=== PATIENT | female | born 1940 | race Caucasian/White ===

== ENCOUNTER → 2024-06-26 | Outpatient (CLI) | payer MEDICARE, MEDICAID, SELFPAY ==
[2024-06-26 17:47] LABS: Basophils % (Auto) 1 % (0-2.5); Eosinophils # (Auto) 0.1 Thou/mm3 (0.0-0.5); Eosinophils % (Auto) 2 % (0-10); Hematocrit 35.4 % (36.0-46.0); Hemoglobin 12.2 g/dL (12.0-16.0); Immature Granulocytes % (Auto) 0 % (0-0); Immature Granulocytes Auto 0.02 Thou/mm3 (0.00-0.00); Lymphocytes # (Auto) 0.8 Thou/mm3 (1.0-4.8); Lymphocytes % (Auto) 15 % (10-50); Mean Corpuscular HGB Conc 34.5 g/dl (31.0-37.0); Mean Corpuscular Hemoglobin 32.1 pg (25.0-35.0); Mean Corpuscular Volume 93 fL (80-100); Monocytes # (Auto) 0.5 Thou/mm3 (0.0-0.8); Monocytes % (Auto) 9 % (0-12); Neutrophils % (Auto) 73 % (37-80); Nucleated Red Blood Cell % 0 /100 WBC (0); Platelet Count 105 Thou/mm3 (140-440); RDW Standard Deviation 44.2 fL (36.4-46.3); White Blood Count 5.4 Thou/mm3 (3.6-11.0)
[2024-06-26 17:53] LABS: Glucose Estimated Average 120 mg/dL (80-131); Hemoglobin A1C 5.8 % Hgb (4.8-6.0)
[2024-06-26 17:58] LABS: Sed Rate (ESR) 12 mm/hr (0-30)
[2024-06-26 18:36] LABS: Albumin, Serum 4.8 gm/dL (3.4-4.8); Albumin/Globulin Ratio 2.2 (1.2-2.2); Alkaline Phosphatase 112 U/L (46-116); Anion Gap 11 (7-16); Aspartate Amino Transferase 21 U/L (0-34); BUN/Creatinine Ratio 22 Ratio (12-20); Bilirubin,Total 0.4 mg/dL (0.3-1.2); Blood Urea Nitrogen 20 mg/dL (9-23); Carbon Dioxide 26.7 mMol/L (20.0-31.0); Cardiac Risk Estimate 2.9 RATIO (3.7-5.6); Chloride 102 mMol/L (98-107); Cholesterol 241 mg/dL (132-200); Creatinine (Component) 0.9 mg/dL (0.6-1.3); Globulin 2.2 gm/dL (2.3-3.5); Glucose 108 mg/dL (74-106); HDL Cholesterol 84 mg/dL (40-60); LDL Cholesterol,Calculated 122 mg/dL (0-130); Magnesium 1.9 mg/dL (1.6-2.6); Osmolality,Calculated 283 (275-295); Phosphorous 3.3 mg/dL (2.4-5.1); Sodium 140 mMol/L (136-145); Total Iron Binding Capacity 282 mcg/dL (250-425); Triglycerides 175 mg/dL (30-150); Vitamin B12 468 pg/mL (211-911); eGFR > 60 See Note
[2024-06-26 18:56] LABS: Alanine Aminotransferase 7 U/L (10-49)
[2024-06-26 19:59] LABS: Iron 57 mcg/dL (50-170); Percent Iron Saturation 20 % (20-55); Unsaturated Iron Binding 225 (225-295)
[2024-06-27 10:13] LABS: Vitamin D 25 Hydroxy Total 11.1 ng/mL (7.3-40.2)
== END | disposition home or self-care (01) ==
LOC: COPL 16:51
PROVIDERS: PCP Internal Medicine; Referring Provider Internal Medicine; Visit Provider Internal Medicine
DX: E11.65 Type 2 diabetes mellitus with hyperglycemia (principal); I10 Essential (primary) hypertension
CPT/HCPCS: 36415; 80053; 80061; 82306; 82607; 83036; 83540; 83550; 83735; 84100; 85025; 85652

== ENCOUNTER 2024-07-01 15:52 | Outpatient (RCR) | payer MEDICARE, MEDICAID, SELFPAY ==
--- NOTE | 2024-07-01 21:32 | CTCFLWUP_ITS ---
Patient: DALIA ANDERSON : 1940 Page 2 of 3 FOLLOW UP NOTE DATE OF SERVICE: 07/01/2024 NAME: DALIA ANDERSON ACCOUNT: [id number] : 1940 AGE: 84 INTERVAL HISTORY: Patient is doing well . she have no bleeding and bruising . ONCOLOGY HISTORY: DIAGNOSIS: Chronic lymphocytic leukemia of B-cell type not having achieved remission [ICD10] C91.10 TREATMENT HISTORY: Care?Plan Start?Date Cycle Day Intent Rituximab?375?mg/m*2?-?1st?Line?or?Rel,?Ref 03/30/201507 09 Palliative CLL:?Rituxan?375?+?Bendamustine?70 04/14/201507 09 Palliative HISTORY OF PRESENT ILLNESS: Dalia Anderson is a 84-year-old female with history of long-standing CLL. She was treated wi th bendamustine and Rituxan for 2 cycles in the past which she was not able to tolerate. Currently s he is on Imbruvica. Her last labs were drawn in September 2017. WBC count was 16.6 with an 74% lymphocy tosis. She is in the clinic today for follow-up. She is clinically doing very well. Denies any new complaints. Denies a ny weakness fatigue cough chest pain abdominal pain or leg cramps. According to patient's daughter her lymphocyte count was more than 300,000 prior to starting her on I mbruvica about 3 years ago 06/19/2018: WBC 6.5, absolute lymphocyte count 2.9, hemoglobin 11.4, platelets 92,000's. 08/15/2018: WBC 6.1, absolute lymphocyte count 2.5, hemoglobin 11.0, platelets 91,000's. 12/05/2018: WBC 6.8, absolute lymphocyte count 2.9, hemoglobin 10.8, platelets 96,000's. 03/18/2019: WBC 6.6, absolute lymphocyte count 2.8, hemoglobin 10.6, platelets 101,000. 01/28/2020: WBC 6.6, absolute lymphocyte count 2.8, hemoglobin 11.8, platelets 119,000. 03/15/2021: WBC 6.6, absolute lymphocyte count 2.3, hemoglobin 12.6, MCV 91, platelets 129,000. 05/13/2022: WBC 4.8, ANC 3.3, hemoglobin 11.7, MCV 92, platelets 96,000. 05/10/2023: WBC 5.7, hemoglobin 12.1, MCV 92, platelets 109,000. 10/16/2023: WBC 5.3, ALC 0.7, hemoglobin 12.5, MCV 88, platelets 99,000. 01/31/2024: WBC 5.5, ALC 0.9, hemoglobin 12.5, MCV 93, platelets 123,000. OTHER MEDICAL HISTORY/CONDITIONS: FAMILY HISTORY: SOCIAL HISTORY: MANAGER [employer] HISTORY: MEDICATIONS: 1. Benicar HCT - 40-25 mg 1 tab Daily 2. FeosoL - 325 mg (65 mg iron) 1 tab Daily 3. meclizine - 12.5 mg 1 tab Daily 4. metoprolol tartrate - 25 mg 1 tab Daily 5. Protonix - 40 mg 1 Daily 6. Ridaura - 3 mg 1 Capsule Twice a Day 7. Tradjenta - 5 mg Daily Medications Last Reconciled by Radha Johnson MA on 02/21/2024 ALLERGIES: No Known Drug Allergies REVIEW OF SYSTEMS: A complete 14-point review of systems was performed and is negative except as noted in interval histo ry. PHYSICAL EXAMINATION: VITAL SIGNS: PAIN: 0 - No pain ECOG Performance Status: 0 - Asymptomatic and fully active GENERAL APPEARANCE: Appears well, in no apparent distress, appropriately interactive. HEENT: Normocephalic, no temporal wasting, normal conjunctiva, no scleral icterus, normal hearing, li ps without lesions, neck normal range of motion. CARDIOVASCULAR: Not assessed. PULMONARY: Normal respiratory effort, no respiratory distress or use of accessory muscles, speaking i n full sentences, no tachypnea. EXTREMITIES: No pedal edema or cyanosis. SKIN: Normal skin appearance. NEUROLOGIC: Alert and oriented x4. PSHYCHIATRIC: Appropriate affect, mood normal, behavior normal, intact thought and speech. LABORATORY DATA: I have personally reviewed and interpreted each of the patient?s relevant lab tests, abnormal finding s are below: Date 06/26/24 ??GLUCOSE,RANDOM?(mg/dL) 108?H ??BLOOD?UREA?NITROGEN?(mg/dL) 20 ??CREATININE?(mg/dL) 0.90 ??SODIUM?(mmol/L) 140 ??POTASSIUM?(mmol/L) 4.0 ??CHLORIDE?(mmol/L) 102 ??CrCl?(CandG)?(ml/min) 47.48 ??AST/SGOT?(Unit/L) 21 ??ALT/SGPT?(Unit/L) 7?L ??ALKALINE?PHOSPHATASE?(Unit/L) 112 ??BILIRUBIN,?TOTAL?(mg/dL) 0.4 ??PROTEIN?TOTAL?(gm/dl) 7.0 ??ALBUMIN,?SERUM?(gm/dl) 4.8 ??GLOBULIN?(gm/dl) 2.2?L ??ALBUMIN/GLOBULIN?RATIO 2.2 ??CALCIUM,?SERUM?(mg/dL) 10.0 ??CALCIUM?SERUM?(CORRECTED)?(mg/dL) 10.0 ASSESSMENT/PLAN: Ms. Anderson is clinically doing well. Recent labs show her ALC to be 0.9. Imbruvica stopped on May 22, 2023. Chronic intermittent dizziness Chronic asymptomatic thrombocytopenia and plts above 80 k CLL. WBC and lymphocyte counts are within normal range No specific intervention today. Will see her back in clinic in 4 months with CBC and CMP done prior to the visit. ORDERS: Cbc,cmp RETURN TO CLINIC: 4 months BILLING AND COMPLIANCE: I reviewed external records from providers outside my specialty as summarized above. I spent a total of 50 minutes on this patient?s care on the day of their visit excluding time spent related to any bi lled procedures. This time includes time spent with the patient as well as time spent documenting in the medical record, reviewing patients records and tests, obtaining history, placing orders, communi cating with other healthcare professionals, counseling the patient, family or caregiver, and/or care coordination for the diagnoses above. Electronically Signed by: Newton Mendez MD T: 9:29 PM CC: Niki?Preethi? PCP: Niki Oro Referring: Niki Oro This document was completed utilizing speech recognition software. Grammatical errors, random word in sertions, pronoun errors, and incomplete sentences are an occasional consequence of this system due t o software limitations, ambient noise, and hardware issues. Any formal questions or concerns about th e content, text or information contained within the body of this dictation should be directly address ed to the provider for clarification.
== END 2024-07-12 23:59 | disposition home or self-care (01) ==
LOC: SCTC 15:52
PROVIDERS: PCP Internal Medicine; Referring Provider Internal Medicine; Visit Provider Internal Medicine Hematology & Oncology
DX: C91.10 Chronic lymphocytic leukemia of B-cell type not having achieved remission (principal); R42 Dizziness and giddiness; D69.6 Thrombocytopenia, unspecified
CPT/HCPCS: 99212; G0463

== ENCOUNTER → 2024-10-11 | Outpatient (CLI) | payer MEDICARE, MEDICAID, SELFPAY ==
[2024-10-11 16:57] LABS: Misc Send Out* See Sep Rpt
[2024-10-11 17:30] LABS: Basophils % (Auto) 1 % (0-2.5); Eosinophils # (Auto) 0.1 Thou/mm3 (0.0-0.5); Eosinophils % (Auto) 1 % (0-10); Hematocrit 37.7 % (36.0-46.0); Hemoglobin 13.3 g/dL (12.0-16.0); Immature Granulocytes % (Auto) 0 % (0-0); Immature Granulocytes Auto 0.02 Thou/mm3 (0.00-0.00); Lymphocytes # (Auto) 1.2 Thou/mm3 (1.0-4.8); Lymphocytes % (Auto) 20 % (10-50); Mean Corpuscular HGB Conc 35.3 g/dl (31.0-37.0); Mean Corpuscular Hemoglobin 31.5 pg (25.0-35.0); Mean Corpuscular Volume 89 fL (80-100); Monocytes # (Auto) 0.6 Thou/mm3 (0.0-0.8); Monocytes % (Auto) 9 % (0-12); Neutrophils # (Auto) 4.1 Thou/mm3 (1.8-7.7); Neutrophils % (Auto) 68 % (37-80); Nucleated Red Blood Cell % 0 /100 WBC (0); Platelet Count 106 Thou/mm3 (140-440); RDW Standard Deviation 43.3 fL (36.4-46.3); Red Blood Count 4.22 Miln/mm3 (4.00-5.20)
[2024-10-11 17:40] LABS: Glucose Estimated Average 114 mg/dL (80-131); Hemoglobin A1C 5.6 % Hgb (4.8-6.0)
[2024-10-11 17:44] LABS: Ferritin 303 ng/mL (7.3-270.7); Iron 96 mcg/dL (50-170); Percent Iron Saturation 32 % (20-55); Total Iron Binding Capacity 297 mcg/dL (250-425); Unsaturated Iron Binding 201 (225-295); Vitamin B12 544 pg/mL (211-911); Vitamin D 25 Hydroxy Total 21.7 ng/mL (7.3-40.2)
[2024-10-11 17:49] LABS: Sed Rate (ESR) 8 mm/hr (0-30)
[2024-10-11 17:53] LABS: Alanine Aminotransferase 7 U/L (10-49); Albumin, Serum 4.6 gm/dL (3.4-4.8); Albumin/Globulin Ratio 1.9 (1.2-2.2); Alkaline Phosphatase 122 U/L (46-116); Anion Gap 13 (7-16); Aspartate Amino Transferase 28 U/L (0-34); BUN/Creatinine Ratio 34 Ratio (12-20); Bilirubin,Total 0.4 mg/dL (0.3-1.2); Blood Urea Nitrogen 34 mg/dL (9-23); Calcium 9.3 mg/dL (8.3-10.6); Calcium (Corrected) 9.3 mg/dL (8.5-10.1); Carbon Dioxide 22.7 mMol/L (20.0-31.0); Cardiac Risk Estimate 2.8 RATIO (3.7-5.6); Chloride 105 mMol/L (98-107); Cholesterol 222 mg/dL (132-200); Globulin 2.4 gm/dL (2.3-3.5); Glucose 103 mg/dL (74-106); HDL Cholesterol 79 mg/dL (40-60); LDL Cholesterol,Calculated 90 mg/dL (0-130); Magnesium 1.8 mg/dL (1.6-2.6); Osmolality,Calculated 288 (275-295); Phosphorous 3.2 mg/dL (2.4-5.1); Potassium 3.3 mMol/L (3.4-5.1); Prealbumin 28.8 mg/dL (10.0-40.0); Sodium 141 mMol/L (136-145); Triglycerides 267 mg/dL (30-150); eGFR 56 See Note
== END | disposition home or self-care (01) ==
PROVIDERS: PCP Internal Medicine; Referring Provider Internal Medicine; Visit Provider Internal Medicine
DX: I10 Essential (primary) hypertension (principal); R53.0 Neoplastic (malignant) related fatigue; C91.11 Chronic lymphocytic leukemia of B-cell type in remission; E11.65 Type 2 diabetes mellitus with hyperglycemia
CPT/HCPCS: 36415; 80053; 80061; 82306; 82607; 82728; 83036; 83540; 83550; 83735; 84100; 84134; 85025; 85652

== ENCOUNTER → 2025-02-20 | Outpatient (CLI) | payer MEDICARE, MEDICAID, SELFPAY ==
[2025-02-20 17:30] LABS: Basophils # (Auto) 0.0 Thou/mm3 (0.0-0.2); Basophils % (Auto) 1 % (0-2.5); Eosinophils # (Auto) 0.1 Thou/mm3 (0.0-0.5); Eosinophils % (Auto) 1 % (0-10); Hematocrit 40.4 % (36.0-46.0); Hemoglobin 13.7 g/dL (12.0-16.0); Immature Granulocytes Auto 0.02 Thou/mm3 (0.00-0.00); Lymphocytes # (Auto) 1.4 Thou/mm3 (1.0-4.8); Lymphocytes % (Auto) 24 % (10-50); Mean Corpuscular HGB Conc 33.9 g/dl (31.0-37.0); Mean Corpuscular Hemoglobin 31.4 pg (25.0-35.0); Mean Corpuscular Volume 92 fL (80-100); Monocytes # (Auto) 0.4 Thou/mm3 (0.0-0.8); Monocytes % (Auto) 8 % (0-12); Neutrophils # (Auto) 3.8 Thou/mm3 (1.8-7.7); Neutrophils % (Auto) 66 % (37-80); Nucleated Red Blood Cell # 0.00 Thou/mm3 (0.00-0.00); Nucleated Red Blood Cell % 0 /100 WBC (0); Platelet Count 96 Thou/mm3 (140-440); RDW Standard Deviation 46.1 fL (36.4-46.3); Red Blood Count 4.37 Miln/mm3 (4.00-5.20); White Blood Count 5.7 Thou/mm3 (3.6-11.0)
[2025-02-20 17:37] LABS: Sed Rate (ESR) 11 mm/hr (0-30)
[2025-02-20 17:40] LABS: Glucose Estimated Average 123 mg/dL (80-131); Hemoglobin A1C 5.9 % Hgb (4.8-6.0)
[2025-02-20 17:51] LABS: Ferritin 315 ng/mL (7.3-270.7); Iron 50 mcg/dL (50-170); Percent Iron Saturation 18 % (20-55); Total Iron Binding Capacity 271 mcg/dL (250-425); Unsaturated Iron Binding 221 (225-295); Vitamin B12 507 pg/mL (211-911); Vitamin D 25 Hydroxy Total 19.5 ng/mL (7.3-40.2)
[2025-02-20 17:54] LABS: Alanine Aminotransferase 8 U/L (10-49); Albumin, Serum 4.7 gm/dL (3.4-4.8); Albumin/Globulin Ratio 2.0 (1.2-2.2); Alkaline Phosphatase 118 U/L (46-116); Anion Gap 12 (7-16); Aspartate Amino Transferase 31 U/L (0-34); BUN/Creatinine Ratio 23 Ratio (12-20); Bilirubin,Total 0.6 mg/dL (0.3-1.2); Blood Urea Nitrogen 23 mg/dL (9-23); Calcium 10.2 mg/dL (8.3-10.6); Calcium (Corrected) 10.2 mg/dL (8.5-10.1); Carbon Dioxide 26.0 mMol/L (20.0-31.0); Chloride 102 mMol/L (98-107); Creatinine (Component) 1.0 mg/dL (0.6-1.3); Globulin 2.3 gm/dL (2.3-3.5); Glucose 120 mg/dL (74-106); Osmolality,Calculated 284 (275-295); Potassium 3.5 mMol/L (3.4-5.1); Sodium 140 mMol/L (136-145); Total Protein 7.0 gm/dL (5.7-8.2); eGFR 56 See Note
== END | disposition home or self-care (01) ==
LOC: COPL 16:41
PROVIDERS: PCP Internal Medicine; Referring Provider Internal Medicine; Visit Provider Internal Medicine
DX: C91.10 Chronic lymphocytic leukemia of B-cell type not having achieved remission (principal); R53.82 Chronic fatigue, unspecified; I10 Essential (primary) hypertension
CPT/HCPCS: 36415; 80053; 82306; 82607; 82728; 83036; 83540; 83550; 85025; 85652

== ENCOUNTER 2025-02-25 15:34 | Outpatient (RCR) | payer MEDICARE, MEDICAID, SELFPAY ==
--- NOTE | 2025-02-25 16:09 | CTCFLWUP_ITS ---
Patient: DALIA ANDERSON : 1940 Page 2 of 4 FOLLOW UP NOTE DATE OF SERVICE: 02/25/2025 NAME: DALIA ANDERSON ACCOUNT: [id number] : 1940 AGE: 85 INTERVAL HISTORY: Patient is doing well . she have no bleeding and bruising . ONCOLOGY HISTORY: DIAGNOSIS: Chronic lymphocytic leukemia of B-cell type not having achieved remission [ICD10] C91.10 TREATMENT HISTORY: Care?Plan Start?Date Cycle Day Intent Rituximab?375?mg/m*2?-?1st?Line?or?Rel,?Ref 03/30/201507 09 Palliative CLL:?Rituxan?375?+?Bendamustine?70 04/14/201507 09 Palliative HISTORY OF PRESENT ILLNESS: Dalia Anderson is a 85-year-old female with history of long-standing CLL. She was treated with bendamustine and Rituxan for 2 cycles in the past which she was not able to tolerate. Currently she is on Imbruvica. Her last labs were drawn in September 2017. WBC count was 16.6 with an 74% lymphocytosis. She is in the clinic today for follow-up. She is clinically doing very well. Denies any new complaints. Denies any weakness fatigue cough chest pain abdominal pain or leg cramps. According to patient's daughter her lymphocyte count was more than 300,000 prior to starting her on Imbruvica about 3 years ago 06/19/2018: WBC 6.5, absolute lymphocyte count 2.9, hemoglobin 11.4, platelets 92,000's. 08/15/2018: WBC 6.1, absolute lymphocyte count 2.5, hemoglobin 11.0, platelets 91,000's. 12/05/2018: WBC 6.8, absolute lymphocyte count 2.9, hemoglobin 10.8, platelets 96,000's. 03/18/2019: WBC 6.6, absolute lymphocyte count 2.8, hemoglobin 10.6, platelets 101,000. 01/28/2020: WBC 6.6, absolute lymphocyte count 2.8, hemoglobin 11.8, platelets 119,000. 03/15/2021: WBC 6.6, absolute lymphocyte count 2.3, hemoglobin 12.6, MCV 91, platelets 129,000. 05/13/2022: WBC 4.8, ANC 3.3, hemoglobin 11.7, MCV 92, platelets 96,000. 05/10/2023: WBC 5.7, hemoglobin 12.1, MCV 92, platelets 109,000. 10/16/2023: WBC 5.3, ALC 0.7, hemoglobin 12.5, MCV 88, platelets 99,000. 01/31/2024: WBC 5.5, ALC 0.9, hemoglobin 12.5, MCV 93, platelets 123,000. OTHER MEDICAL HISTORY/CONDITIONS: FAMILY HISTORY: SOCIAL HISTORY: [employer] HISTORY: MEDICATIONS: 1. Benicar HCT - 20-12.5 mg 1 tab Daily 2. FeosoL - 325 mg (65 mg iron) 1 tab Daily 3. Jardiance - 10 mg 1 tab Daily 4. meclizine - 12.5 mg 1 tab Daily 5. metoprolol tartrate - 25 mg 1 tab Daily 6. Protonix - 40 mg 1 Daily 7. Ridaura - 3 mg 1 Capsule Twice a Day Medications Last Reconciled by Keely Banuelos MA on 02/25/2025 ALLERGIES: No Known Drug Allergies REVIEW OF SYSTEMS: A complete 14-point review of systems was performed and is negative except as noted in interval history. PHYSICAL EXAMINATION: VITAL SIGNS: Temperature?99, B/P?171/71, Oxygen?Saturation?97% Weight?123?lbs PAIN: 0 - No pain ECOG Performance Status: 0 - Asymptomatic and fully active GENERAL APPEARANCE: Appears well, in no apparent distress, appropriately interactive. HEENT: Normocephalic, no temporal wasting, normal conjunctiva, no scleral icterus, normal hearing, lips without lesions, neck normal range of motion. CARDIOVASCULAR: Not assessed. PULMONARY: Normal respiratory effort, no respiratory distress or use of accessory muscles, speaking in full sentences, no tachypnea. EXTREMITIES: No pedal edema or cyanosis. SKIN: Normal skin appearance. NEUROLOGIC: Alert and oriented x4. PSHYCHIATRIC: Appropriate affect, mood normal, behavior normal, intact thought and speech. LABORATORY DATA: I have personally reviewed and interpreted each of the patient?s relevant lab tests, abnormal findings are below: Date 10/11/24 02/20/25 ??WHITE?BLOOD?COUNT?(Thou/mm3) 6.0 5.7 ??RED?BLOOD?COUNT?(Miln/mm3) 4.22 4.37 ??HEMOGLOBIN?(gm/dl) 13.3 13.7 ??HEMATOCRIT?(%) 37.7 40.4 ??PLATELET?COUNT?(Thou/mm3) 106?L 96?L ??NEUTROPHILS?%,?AUTO?(%) 68 66 ??LYMPH?%,?AUTO?(%) 20 24 ??NEUTROPHILS,?AUTO?(Thou/mm3) 4.1 3.8 ??GLUCOSE,RANDOM?(mg/dL) ? 120?H ??BLOOD?UREA?NITROGEN?(mg/dL) ? 23 ??CREATININE?(mg/dL) ? 1.00 ??SODIUM?(mmol/L) ? 140 ??POTASSIUM?(mmol/L) ? 3.5 ??CHLORIDE?(mmol/L) ? 102 ??CrCl?(CandG)?(ml/min) ? 41.98 ??AST/SGOT?(Unit/L) ? 31 ??ALT/SGPT?(Unit/L) ? 8?L ??ALKALINE?PHOSPHATASE?(Unit/L) ? 118?H ??BILIRUBIN,?TOTAL?(mg/dL) ? 0.6 ??PROTEIN?TOTAL?(gm/dl) ? 7.0 ??ALBUMIN,?SERUM?(gm/dl) ? 4.7 ??GLOBULIN?(gm/dl) ? 2.3 ??ALBUMIN/GLOBULIN?RATIO ? 2.0 ??CALCIUM,?SERUM?(mg/dL) ? 10.2 ??CALCIUM?SERUM?(CORRECTED)?(mg/dL) ? 10.2?H ??TOTAL?IRON?BINDING?CAP?(S*)?(mcg/dL) ? 271 ??UNBOUND?IBC?(mcg/dL) ? 221?L ASSESSMENT/PLAN: Chronic lymphocytic leukemia Patient was previously treated with ibrutinib, and a BR in the past CBC CMP reviewed and is stable Patient have elevated alk phos and calcium Will order bone density and PTH Patient will likely benefit from Zometa Hypercalcemia Patient noted to have hypercalcemia along with elevated alk phos Patient's liver enzymes are low normal so low alk phos is likely released from bones Will get bone scan to make sure patient do not have any metastatic lesions Will get bone density PTH level and PTH RP level Patient will be started on Reclast if found to have elevated levels #3 iron deficiency Patient is on oral iron Advised to give 1 tablet of iron every other day ORDERS: Order # Description [id number] Follow Up 1 Year + CBC with Auto Diff + Comprehensive Metabolic Panel - 12 RETURN TO CLINIC: I reviewed the diagnosis, prognosis, and recommended treatment/procedure options with the patient (and/or their legal medical office representative), including the potential benefits, risks, side effects and alternative therapies. We also discussed the option of no treatment and the possibility of clinical trial participation, if applicable. All questions were addressed, and they demonstrated understanding. They provided informed consent to proceed with the proposed plan of care. BILLING AND COMPLIANCE: I reviewed external records from providers outside my specialty as summarized above. I spent a total of 50 minutes on this patient?s care on the day of their visit excluding time spent related to any billed procedures. This time includes time spent with the patient as well as time spent documenting in the medical record, reviewing patients records and tests, obtaining history, placing orders, communicating with other healthcare professionals, counseling the patient, family or caregiver, and/or care coordination for the diagnoses above. Electronically Signed by: Newton Mendez MD T: 4:07 PM CC: Niki?LUCI Oro PCP: Niki Oro Referring: Niki Oro This document was completed utilizing speech recognition software. Grammatical errors, random word insertions, pronoun errors, and incomplete sentences are an occasional consequence of this system due to software limitations, ambient noise, and hardware issues. Any formal questions or concerns about the content, text or information contained within the body of this dictation should be directly addressed to the provider for clarification.
== END 2025-03-11 23:59 | disposition home or self-care (01) ==
LOC: SCTC 15:34
PROVIDERS: PCP Internal Medicine; Referring Provider Internal Medicine; Visit Provider Internal Medicine Hematology & Oncology
DX: C91.10 Chronic lymphocytic leukemia of B-cell type not having achieved remission (principal); E83.52 Hypercalcemia
CPT/HCPCS: 99212; G0463